=== PATIENT | male | born 1985 | race Caucasian/White ===

== ENCOUNTER 2018-05-02 19:35 | Inpatient (IN) ==
[2018-05-03] MEDS ORDERED: Aluminum/Magnesium/Simethacone Susp 30 ML UDC PO PRN
[2018-05-03 06:56] LABS: Calcium 8.6 mg/dL (8.5-10.1); Carbon Dioxide 21.7 meq/L (21.0-32.0); Potassium 4.2 meq/L (3.5-5.1)
[2018-05-03 07:01] LABS: Chol/HDL Ratio 4.7 Ratio; HDL Cholesterol 33.4 mg/dL (40.0-60.0)
--- NOTE | 2018-05-03 09:49 | P.HPPSY ---
Provisional Diagnosis Admission Date: May 02, 2018 20:50 [place] I.: 1. Adjustment disorder with mixed disturbance of emotions and conduct 2. Opioid use disorder, suspect severe [place] II.: Deferred Competence Certification of Person's Competence To Provide Express and Informed Consent I have personally examined Sander Farias, a person being served at [facility] on, May 03, 2018 0949. Express and informed consent means consent voluntarily given in writing, by a competent person, after sufficient explanation and disclosure of the subject matter involved to enable the person to make a knowing and willful decision without any element of force, fraud, deceit, duress, or other form of constraint or coercion. This person is 18 years of age or older, is not now known to be incompetent to consent to treatment with a guardian advocate, and does not have a health care surrogate or proxy currently making medical treatment decisions. I have found this person to be one of the following: [X] Competent to provide express and informed consent, as defined above, for voluntary admission to this facility and is competent to provide express and informed consent for treatment. He/she has the consistent capacity to make well reasoned, willful, and knowing decisions concerning his or her medical or mental health treatment. The person fully and consistently understands the purpose of the admission for examination/placement and is fully capable of personally exercising all rights assured [place] [] Incompetent to provide express and informed consent to voluntary admission, and this is incompetent to provide express and informed consent to treatment. The person must be transferred to involuntary status and a petition for a guardian advocate filed with the Circuit Court. [] Refusing to provide express and informed consent to voluntary admission but is competent to provide express and informed consent for treatment. The person must be discharged or transferred to involuntary status. Form shall be completed within 24 hours of a person's arrival at the receiving facility and filed in the clinical record of each person: 1. Admitted on a voluntary basis 2. Permitted to provide express and informed consent to his/her own treatment 3. Allowed to transfer from involuntary to voluntary status 4. Prior to permitting a person to consent to his or her own treatment after having been previously found incompetent to consent to treatment. History of Present Illness Capacity: Has capacity Chief Complaint: Overdose History of Present Illness: Mr. Farias is a 33-year-old male with a reported history of opioid use issues who presents in transfer from [facility] under a Reyes act. Documentation from outside hospital reviewed. Patient presented there following an overdose. Patient's urine toxicology was negative. His overdose was reportedly Narcan responsive. Reviewing our electronic medical record, it appears that this is patient's first visit to [place]. Patient seen and examined with nurse. Chart reviewed. Case discussed with nursing staff. On my examination today, the patient reports that he made his presenting overdose on heroin because he was upset because of conflict with his family. Reportedly, the patient has to attend a drug evaluation class as part of his probation for a drug offense. He says that he had to reschedule this class for the third time because his sister took the family car, and patient had no transportation to get to the class. He says that he shot up with heroin "to end it. I wanted to make myself not everyone else's problem anymore." He denies any suicidal ideation, intent or plan at this time. He denies significant issues with mood and says that he is "just stressing" about getting to his chemical dependency class. He denies any audiovisual hallucinations. I can elicit no delusional material. The remainder of the psychiatric ROS is negative. The patient complains of some myalgias in the setting of incipient opiate withdrawal. He also complains of some pain and swelling on his R forehead secondary to possible fall. He otherwise has no physical complaints. Past psychiatric history: The patient denies a history of psychiatric diagnosis other than substance use issues. He has not presently under the care of a psychiatrist. He reports that he was Reyes acted about a year and a half ago to a facility called [facility] because "a couple of friends thought I was trying to kill myself." The patient denies that he was genuinely suicidal at that time. I did note in documentation from outside hospital that the patient had reported a previous suicide attempt by hanging around the same time, although he denies any history of suicide attempts to me. Family history: The patient denies a history of mental illness, substance use disorder or suicide in the family. Chemical dependency history: Patient reports that his drug of choice is hydromorphone. He is presently on probation for a drug offense and has to attend chemical dependency classes as noted above. He says that he attended a rehabilitation facility 3 years ago and was stabilized on Suboxone but was unable to continue with this medication and so was only sober for a couple of months. He also smokes a pack a day of cigarettes. Social history: Patient resides with his parents. His sister also lives in the home. He is single with no children. He has a grade 11 education. He works doing [employer]. He denies any history. He is on probation for a drug offense. He denies any access to guns or firearms. Denies any hindu or spiritual beliefs. Denies any history of physical, verbal or sexual abuse. Past medical history: The patient denies any significant medical history. Medications: Patient takes no home medications. Allergies: No known allergies. - Inpatient Certification I certify that the inpatient services were ordered in accordance with Medicare regulations governing the order. This includes certification that hospital inpatient services are reasonable and necessary and in the case of services not specified as inpatient-only under 42 CFR 419.22(n), that they are appropriately provided as inpatient services in accordance to with the 2-midnight benchmark under 43 CFR 412.3(e) I certify that inpatient psychiatric hospital services are medically necessary. Evaluation and treatment and/or diagnostic testing are expected to improve the patient's condition. The patient needs on a daily basis, active treatment furnished directly by or requiring the supervision of inpatient psychiatric facility personnel. Estimated Total Length of Stay (Days): 5 (3-5) Plans for Post Hospital Care: Not yet determined Review of Systems All other systems reviewed negative except as stated in HPI [facility] - History History Provided By: Patient - Tobacco History Second Hand Smoke Exposure: Yes Tobacco Use In Past 30 Days: Yes Smoking Status: Heavy tobacco smoker Tobacco Type: Cigarettes - Alcohol History How Often Do You Have a Drink Containing Alcohol: Never - Substance Use History Substance History: Active Abuse - Substance Use Type Opiates Type: Heroin Status: Active Frequency: Daily, unknown amount, about $20.00 worth Reason for Use: Calm Down, Get High, Hurt Myself - Travel History Recent Travel in the [place] Within the Last 8 Weeks: No Recent Travel Out of the Country Within the Last 8 Weeks: No Quality Measures - Patient Strengths Patient's strengths (minimum of 2): In a monitored setting. Verbally fluent. Medications and Allergies Active Medications: Active Medications Acetaminophen (Tylenol) 650 mg PO Q4H PRN PRN Reason: Pain 1-5 or Temp >101F Al Hydrox/Mg Hydrox/Simethicone (Mag-Al Plus Susp Liq) 30 ml PO Q6H PRN PRN Reason: DYSPEPSIA Al Hydroxide/Mg Hydroxide (Milk Of Magnesia Liq) 30 ml PO Q12H PRN PRN Reason: Mild Constipation Diphenhydramine HCl (Benadryl) 50 mg PO HS PRN PRN Reason: INSOMNIA Diphenhydramine HCl (Benadryl Inj) 50 mg IM HS PRN PRN Reason: INSOMNIA Hydroxyzine HCl (Atarax) 50 mg PO Q6H PRN PRN Reason: ANXIETY Nicotine (Habitrol 21 Mg Patch.24 Hr) 1 patch T-DERMAL DAILY [place] Allergies Allergy/AdvReac Type Severity Reaction Status Date / Time No Known Allergies Allergy Verified 05/02/18 22:52 Results - Labs CBC & Chem 7: 05/03/18 05:57 Labs: Laboratory Results - last 24 hr 05/03/18 05:57 Sodium 139 Potassium 4.2 Chloride 112 H Carbon Dioxide 21.7 Anion Gap 5 BUN 13 Creatinine 0.99 Estimated GFR 87 L Random Glucose 88 Calcium 8.6 Triglycerides 99 Cholesterol 157 LDL Cholesterol, Calc 104 H HDL Cholesterol 33.4 L Cholesterol/HDL Ratio 4.70 Labs reviewed. Laboratories from outside hospital reviewed: BMP revealed decreased GFR at 49. LFTs were within normal limits. CBC revealed mild leukocytosis at 11.2. Urine toxicology negative. Tylenol level undetectable. Alcohol level undetectable. Exam Vital signs: Vital Signs 05/02/18 20:50 05/03/18 05:37 Temperature 97.6 F 97.7 F Pulse Rate 59 L 66 Respiratory Rate 18 18 Blood Pressure 109/65 120/71 Pulse Oximetry 100 100 Intake & Output 05/02/18 05/03/18 05/03/18 18:59 06:59 18:59 Weight 70.6 kg Other: Weight On Admission 70.6 kg Narrative: Physical examination was completed by ED provider at outside hospital. On my examination today, the patient appears to be in no acute physical distress. I do note some slight swelling without laceration or other signs of trauma over his right eyebrow. No evidence of involvement of the right eye. No signs of intoxication or withdrawal noted presently. No motor abnormalities noted otherwise. Labs and vital signs reviewed. Mental Status Examination Appearance: Appropriate Consciousness: Alert Orientation: x4 Motor Activity: Normal gait Speech: Unremarkable Language: Adequate Fund of Knowledge: Adequate Attention and Concentration: Adequate Memory: Unremarkable (Grossly intact on clinical exam) Mood: Appropriate (No reported issues with mood) Affect: Appropriate Thought Process & Associations: Intact Thought Content: Appropriate Hallucination Type: None Delusion Type: None Suicidal Ideation: No (Unclear whether patient is reliable to contract for safety) Suicidal Plan: No Suicidal Intention: No Homicidal Ideation: No Homicidal Plan: No Homicidal Intention: No Insight: Fair Judgment: Impulsive Assessment and Plan - Assessment (1) Adjustment disorder with mixed disturbance of emotions and conduct Code(s): F43.25 - Adjustment disorder with mixed disturbance of emotions and conduct Status: Acute (2) Opioid use disorder, severe, dependence Code(s): F11.20 - Opioid dependence, uncomplicated Status: Acute - Plan Plan: 33-year-old male with psychiatric history as detailed above who presents in transfer from outside hospital under a Reyes act. On my examination today, the patient reports that he made presenting overdose impulsively in response to family stressors. He denies any suicidal ideation and likewise denies any issues with mood presently. I will plan to admit the patient to the inpatient psychiatric unit for observation. Admitted inpatient. Voluntary status. For symptomatic management of opioid withdrawal, initiate baclofen 10 mg 4 times a day as well as as needed clonidine , Imodium, Zofran and analgesic. Check head CT given report of fall. Vitals every shift. Counselor to see. Disposition planning. Estimated length of stay : 3-5 days. Justification for Continued Inpatient Stay: Monitoring for impairments in safety. Discharge Planning: Pending outcome of observation Request Healthcare Surrogate/Guardian Advocate?: No
[2018-05-03] MEDS ORDERED: Loperamide 2 MG Capsule PO PRN (09:51)
[2018-05-03 12:59] LABS: Hemoglobin A1c 5.3 % (4.3-6.0)
[2018-05-03] MEDS: Baclofen 10 MG Tablet PO SCH ×4 (14:28→20:50)
[2018-05-03 17:23] VITALS: RESP 16
--- NOTE | 2018-05-03 18:26 | CT ---
EXAM DATE: 05/03/2018 6:21 PM EST AGE/SEX: 33 years / Male INDICATIONS: Fall. Head injury. CLINICAL DATA: This is the patient's initial encounter. Patient reports that signs and symptoms have been present for 1 day and indicates a pain score of 0/10. MEDICAL/SURGICAL HISTORY: None. None. RADIATION DOSE: 47.67 CTDI (mGy) COMPARISON: No prior exams available for comparison. TECHNIQUE: CT of the head without contrast. Using automated exposure control and adjustment of the mA and/or kV according to patient size, radiation dose was kept as low as reasonably achievable to ob tain optimal diagnostic quality images. DICOM format image data is available electronically for revi ew and comparison. FINDINGS: Cerebrum: The ventricles are normal for age. No evidence of midline shift, mass lesion, hemorrhage or acute infarction. No extraaxial fluid collections are seen. Posterior Fossa: The cerebellum and brainstem are intact. The 4th ventricle is midline. The cerebe llopontine angle is unremarkable. Extracranial: The visualized portion of the orbits is intact. Skull: The calvaria is intact. No evidence of skull fracture. CONCLUSION: 1. Negative noncontrast head CT. . Electronically signed by: Heron Murillo MD 05/03/2018 6:24 PM EST
[2018-05-03] MEDS: Acetaminophen 325 MG Tablet PO PRN (20:49)
[2018-05-04] MEDS: Baclofen 10 MG Tablet PO SCH ×4 (08:37→20:45)
--- NOTE | 2018-05-04 11:16 | P.DSPSY ---
Psychiatry Discharge Summary Advance Directives: No - Admission Admission Date: May 02, 2018 20:50 Brief History: Mr. Farias is a 33-year-old male with a reported history of opioid use issues who presents in transfer from [facility] under a Reyes act. Documentation from outside hospital reviewed. Patient presented there following an overdose. Patient's urine toxicology was negative. His overdose was reportedly Narcan responsive. Reviewing our electronic medical record, it appears that this is patient's first visit to [place]. Patient seen and examined with nurse. Chart reviewed. Case discussed with nursing staff. On my examination today, the patient reports that he made his presenting overdose on heroin because he was upset because of conflict with his family. Reportedly, the patient has to attend a drug evaluation class as part of his probation for a drug offense. He says that he had to reschedule this class for the third time because his sister took the family car, and patient had no transportation to get to the class. He says that he shot up with heroin "to end it. I wanted to make myself not everyone else's problem anymore." He denies any suicidal ideation, intent or plan at this time. He denies significant issues with mood and says that he is "just stressing" about getting to his chemical dependency class. He denies any audiovisual hallucinations. I can elicit no delusional material. The remainder of the psychiatric ROS is negative. The patient complains of some myalgias in the setting of incipient opiate withdrawal. He also complains of some pain and swelling on his R forehead secondary to possible fall. He otherwise has no physical complaints. Past psychiatric history: The patient denies a history of psychiatric diagnosis other than substance use issues. He has not presently under the care of a psychiatrist. He reports that he was Reyes acted about a year and a half ago to a facility called [facility] because "a couple of friends thought I was trying to kill myself." The patient denies that he was genuinely suicidal at that time. I did note in documentation from outside hospital that the patient had reported a previous suicide attempt by hanging around the same time, although he denies any history of suicide attempts to me. Family history: The patient denies a history of mental illness, substance use disorder or suicide in the family. Chemical dependency history: Patient reports that his drug of choice is hydromorphone. He is presently on probation for a drug offense and has to attend chemical dependency classes as noted above. He says that he attended a rehabilitation facility 3 years ago and was stabilized on Suboxone but was unable to continue with this medication and so was only sober for a couple of months. He also smokes a pack a day of cigarettes. Social history: Patient resides with his parents. His sister also lives in the home. He is single with no children. He has a grade 11 education. He works doing [employer]. He denies any history. He is on probation for a drug offense. He denies any access to guns or firearms. Denies any druze or spiritual beliefs. Denies any history of physical, verbal or sexual abuse. Past medical history: The patient denies any significant medical history. Medications: Patient takes no home medications. Allergies: No known allergies. Tobacco Use In Past 30 Days: Yes How Often Do You Have a Drink Containing Alcohol: Never Mental Status Examination Appearance: Appropriate Consciousness: Alert Orientation: x4 Motor Activity: Normal gait Speech: Unremarkable Language: Adequate Fund of Knowledge: Adequate Attention and Concentration: Adequate Memory: Unremarkable (Grossly intact on clinical exam) Mood: Appropriate (No reported issues with mood) Affect: Appropriate Thought Process & Associations: Intact Thought Content: Appropriate Hallucination Type: None Delusion Type: None Suicidal Ideation: No (Unclear whether patient is reliable to contract for safety) Suicidal Plan: No Suicidal Intention: No Homicidal Ideation: No Homicidal Plan: No Homicidal Intention: No Insight: Fair Judgment: Impulsive Discharge/Advance Care Plan - Results Vital Signs: Last Vital Signs Temp 98.1 F 05/04/18 05:53 Pulse 59 L 05/04/18 05:53 Resp 16 05/04/18 05:53 BP 120/86 05/04/18 05:53 Pulse Ox 99 05/04/18 05:53 Lab Results: Abnormal Lab Results 05/03/18 05:57 Hemoglobin A1c 5.3 Laboratory Results Hemoglobin A1c 5.3 % (4.3-6.0) 05/03/18 05:57 Triglycerides 99 mg/dL (42-150) 05/03/18 05:57 Cholesterol 157 mg/dL (120-200) 05/03/18 05:57 LDL Cholesterol, Calc 104 mg/dL (0-99) H 05/03/18 05:57 HDL Cholesterol 33.4 mg/dL (40.0-60.0) L 05/03/18 05:57 Imaging: ITS Impressions Head CT 05/03/18 00:00 CONCLUSION: 1. Negative noncontrast head CT. . - Discharge Care Plan Goals to Promote Your Health: * To prevent worsening of your condition and complications * To maintain your health at the optimal level Directions to Meet Your Goals: Take your medications as prescribed Follow your dietary instruction Follow activity as directed Keep your appointments as scheduled Take your immunizations and boosters as scheduled If your symptoms worsen call your PCP, if no PCP go to Urgent Care Center or Emergency Room For 27/12 questions related to your inpatient stay or results of tests pending at discharge, please contact Dr. Dwayne Galvez MD at Smoking is Dangerous to Your Health. Avoid second hand smoking
--- NOTE | 2018-05-04 12:22 | P.PNPSY ---
Subjective Chief Complaint: Overdose Remarks: Patient seen and examined with nurse. Chart reviewed. Case discussed with nursing staff who reports patient has been no behavioral problem on the unit. Case discussed with counselor who has been unable to obtain collateral information regarding patient's case. On my examination to day, the patient says of his presenting suicide attempt "I made a decision, and it was a selfish one." He says that he has apologized to his sister over the phone for blaming her for his presenting overdose. He denies any suicidal ideation at this time. No side effects from medications. No physical complaints. Patient hopeful for discharge soon as he would like to get back to work. Vital Signs Temp Pulse Resp BP Pulse Ox 05/04/18 05:53 98.1 F 59 L 16 120/86 99 05/03/18 17:23 97.6 F 57 L 16 133/82 99 Intake and Output 05/03/18 05/04/18 05/04/18 22:59 06:59 14:59 Other: Weight 68.8 kg Laboratory Results - last 24 hr 05/03/18 05:57 Hemoglobin A1c 5.3 Labs reviewed. Review of Systems All other systems reviewed negative except as stated in HPI Mental Status Examination Appearance: Appropriate Consciousness: Alert Orientation: x4 Motor Activity: Normal gait, Other (No motor abnormalities noted. No signs of opiate withdrawal noted.) Speech: Unremarkable Language: Adequate Fund of Knowledge: Adequate Attention and Concentration: Adequate Memory: Unremarkable (Grossly intact on clinical exam) Mood: Appropriate Affect: Appropriate Thought Process & Associations: Intact Thought Content: Appropriate Hallucination Type: None Delusion Type: None Suicidal Ideation: No (Unclear whether patient is reliable to contract for safety) Suicidal Plan: No Suicidal Intention: No Homicidal Ideation: No Homicidal Plan: No Homicidal Intention: No Insight: Fair Judgment: Impulsive Assessment and Plan - Assessment (1) Adjustment disorder with mixed disturbance of emotions and conduct Code(s): F43.25 - Adjustment disorder with mixed disturbance of emotions and conduct Status: Acute (2) Opioid use disorder, severe, dependence Code(s): F11.20 - Opioid dependence, uncomplicated Status: Acute - Plan Plan: Continue baclofen as ordered. Continue to monitor on the inpatient unit. I do feel that collateral information is important to help stratify patient's risk for ongoing self-harm. Continue other medications and care as ordered. Justification for Continued Inpatient Stay: Monitoring for impairment and safety, none noted. Discharge Planning: Awaiting collateral information. If reassuring, could consider discharge as early as tomorrow. Request Healthcare Surrogate/Guardian Advocate?: No
[2018-05-04] MEDS: Acetaminophen 325 MG Tablet PO PRN (17:04)
[2018-05-05 05:27] VITALS: BP 103/58; PULSE 64; TEMP 97.3; O2SAT 99
[2018-05-05] MEDS: Baclofen 10 MG Tablet PO SCH ×2 (09:42→12:48)
--- NOTE | 2018-05-05 12:11 | P.DSPSY ---
Psychiatry Discharge Summary Inpatient Psychiatric care?: Yes Advance Directives: No Mental Health Advance Directive: No Health Care Proxy: No - Admission Admission Date: May 02, 2018 20:50 - Admission Diagnosis (1) Adjustment disorder with mixed disturbance of emotions and conduct Code(s): F43.25 - Adjustment disorder with mixed disturbance of emotions and conduct (2) Opioid use disorder, severe, dependence Code(s): F11.20 - Opioid dependence, uncomplicated Brief History: Mr. Farias is a 33-year-old male with a reported history of opioid use issues who presents in transfer from [facility] under a [place] act. Documentation from outside hospital reviewed. Patient presented there following an overdose. Patient's urine toxicology was negative. His overdose was reportedly Narcan responsive. Reviewing our electronic medical record, it appears that this is patient's first visit to [facility]. Patient seen and examined with nurse. Chart reviewed. Case discussed with nursing staff. On my examination today, the patient reports that he made his presenting overdose on heroin because he was upset because of conflict with his family. Reportedly, the patient has to attend a drug evaluation class as part of his probation for a drug offense. He says that he had to reschedule this class for the third time because his sister took the family car, and patient had no transportation to get to the class. He says that he shot up with heroin "to end it. I wanted to make myself not everyone else's problem anymore." He denies any suicidal ideation, intent or plan at this time. He denies significant issues with mood and says that he is "just stressing" about getting to his chemical dependency class. He denies any audiovisual hallucinations. I can elicit no delusional material. The remainder of the psychiatric ROS is negative. The patient complains of some myalgias in the setting of incipient opiate withdrawal. He also complains of some pain and swelling on his R forehead secondary to possible fall. He otherwise has no physical complaints. Tobacco Use In Past 30 Days: Yes How Often Do You Have a Drink Containing Alcohol: Never Hospital Course: Patient was admitted to a locked, inpatient psychiatric unit. Appropriate precautions were in place throughout patient's hospital stay. Patient was seen and examined on the unit by psychiatry and also visited by counselor. There was no evidence of any suicidality or homicidality on the inpatient unit. There was no evidence of self-care deficit. On the day of discharge: Patient seen and examined with nurse. Chart reviewed. Case discussed with nursing staff. No behavioral issues noted overnight. Case discussed in treatment team. Counselor has obtained reassuring collateral information from patient's father to the effect that father has no safety concerns about the patient being discharged today. On my examination today, the patient is requesting discharge from the inpatient psychiatric unit today. He denies any suicidal or homicidal ideation, intent or plan. I can elicit no depressive or hypomanic/manic symptoms. He denies any audiovisual hallucinations, and I can elicit no delusional material. No medication side effects. We have discussed patient's discharge medication regimen. No acute physical complaints. Weighing the acute, chronic, and protective factors and based on the available evidence, I county court judge that the patient does not meet criteria for involuntary psychiatric hospitalization at this time. There is no evidence of imminent risk of harm to self or others at this point, nor is there any self-care deficit to substantiate involuntary psychiatric hospitalization. Having no basis to retain the patient over his objection, I will discharge him today with psychiatric follow-up as arranged by counselor. Patient's substance use is likely a chronic risk factor, and I have supported him in his desire for abstinence from substances of abuse. The patient does plan to follow up with a Suboxone provider. Patient is also to follow-up with primary care. I have counseled the patient regarding warning signs for need to return to the psychiatric emergency room as part of a general safety plan. - Discharge Discharge Date: 05/05/18 - Discharge Diagnosis (1) Adjustment disorder with mixed disturbance of emotions and conduct Diagnosis: Principal (resolved) Code(s): F43.25 - Adjustment disorder with mixed disturbance of emotions and conduct Status: Acute (2) Opioid use disorder, severe, dependence Diagnosis: Secondary (counseled to quit) Code(s): F11.20 - Opioid dependence, uncomplicated Status: Acute Discharge Disposition: Home - Discharge Instructions Discharge Diet: Regular Diet Activities You Can Perform: Weight Bearing As Tolerat - Discharge Time <= 30 minutes Mental Status Examination Appearance: Appropriate Consciousness: Alert Orientation: x4 Motor Activity: Normal gait, Other (No abnormal motor movements noted. No signs of withdrawal noted.) Speech: Unremarkable Language: Adequate Fund of Knowledge: Adequate Attention and Concentration: Adequate Memory: Unremarkable (Grossly intact on clinical exam) Mood: Appropriate Affect: Appropriate, Euthymic Thought Process & Associations: Intact Thought Content: Appropriate Hallucination Type: None Delusion Type: None Suicidal Ideation: No Suicidal Plan: No Suicidal Intention: No Homicidal Ideation: No Homicidal Plan: No Homicidal Intention: No Mental Status Exam Remarks: Insight and judgment are fair. Discharge/Advance Care Plan - Results Vital Signs: Last Vital Signs Temp 97.3 F L 05/05/18 05:25 Pulse 64 05/05/18 05:25 Resp 16 05/04/18 17:24 BP 103/58 L 05/05/18 05:25 Pulse Ox 99 05/05/18 05:25 Lab Results: Laboratory Results Hemoglobin A1c 5.3 % (4.3-6.0) 05/03/18 05:57 Triglycerides 99 mg/dL (42-150) 05/03/18 05:57 Cholesterol 157 mg/dL (120-200) 05/03/18 05:57 LDL Cholesterol, Calc 104 mg/dL (0-99) H 05/03/18 05:57 HDL Cholesterol 33.4 mg/dL (40.0-60.0) L 05/03/18 05:57 Summary of Procedures: None done. Imaging: ITS Impressions Head CT 05/03/18 00:00 CONCLUSION: 1. Negative noncontrast head CT. . Pending Results: None - Medications Number of antipsychotic medications at discharge: 0 - Discharge Care Plan Goals to Promote Your Health: * To prevent worsening of your condition and complications * To maintain your health at the optimal level Directions to Meet Your Goals: Take your medications as prescribed Follow your dietary instruction Follow activity as directed Keep your appointments as scheduled Take your immunizations and boosters as scheduled If your symptoms worsen call your PCP, if no PCP go to Urgent Care Center or Emergency Room For 27/12 questions related to your inpatient stay or results of tests pending at discharge, please contact Dr. Dwayne Galvez MD at [phone] Smoking is Dangerous to Your Health. Avoid second hand smoking
== END 2018-05-05 14:27 | disposition home or self-care (01) ==
LOC: H270 20:50 → H260 05-03 11:45
PROVIDERS: ADMIT Psychiatry & Neurology Psychiatry; ATTEND Psychiatry & Neurology Psychiatry